=== PATIENT | female | born 1970 | race Caucasian/White ===

== ENCOUNTER → 2016-12-25 | Outpatient (CLI) | payer OTHER ==
[~2016-12-25] MED LIST: BUSPAR15 MG PO; LEXAPRO; LISINOPRIL-HCTZ1 T18 PO; LODINE400 MG PO; LORTAB 7.5-5001 TAB; LORTAB 7.5-5001 TAB PO; PHENERGAN25 MG PO; PRISTIQ50 MG PO
--- NOTE | ~2016-12-25 | MY29 ---
[facility] A Service of [facility] RADIOLOGY TEXT RESULTS PATIENT: KIM NINO LOCATION: [facility] : [birth year] UNIT #: [id number] AGE: [address]: Herson Ledezma MD SEX: F ORDER DR: [id number] [facility] [address] [place], [place] [address] [id number] O MR#: [id number] Acc #: [id number] NAME: KIM NINO : 1970 SEX: F STUDY DATE/TIME: 12/25/2016 11:31 UNIT: [facility] ROOM: STUDY DESCRIPTION: MY [facility] SCREENING W/ CAD BILAT Attending Physician: Herson Ledezma M.D. Ordering Physician: Herson Ledezma M.D. Primary Care Physician: Radha Lemus Aprn MEDICAL IMAGING REPORT This report is preliminary unless electronic signature is present EXAM Bilateral digital screening mammogram with CAD 12/25/2016 INDICATIONS 46-year-old female for routine screening. No reported problems no personal history of breast cancer. Family history positive in the patient's grandmother. Lumpectomy performed on the right in 1999. TECHNIQUE CC and MLO views of the breast were obtained and reviewed with an FDA-approved CAD device COMPARISON 12/05/2015 07/15/2014 05/17/2013 FINDINGS Breast parenchyma is composed of scattered fibroglandular densities. The pattern is unchanged. Scar marker on the right. Mole markers present. There is no new dominant nodule mass or suspicious clustered microcalcifications. Benign calcifications present. IMPRESSION 1. Benign screening mammogram 1 year followup recommended Patients over the age of 40 are entered into a reminder system with target due date for the next mammogram. A result letter will also be sent to the patient. BIRADS: 2, benign findings. Dictated by... Chon Leon M.D. [facility] A Service of [facility] RADIOLOGY TEXT RESULTS PATIENT: KIM NINO LOCATION: [facility] : [birth year] UNIT #: [id number] AGE: [address]: Herson Ledezma MD SEX: F ORDER DR: THIS IS AN ELECTRONICALLY VERIFIED REPORT Chon Leon M.D. at 12/25/2016 2:12 PM ALLA/ponce TD: 12/25/2016 13:50 JOB #: [id number] MEDICAL IMAGING REPORT Page 1 of 1 COPY
== END | disposition home or self-care (01) ==
LOC: CWCC 11:06
DX: Z12.31 Encounter for screening mammogram for malignant neoplasm of breast (principal); Z80.3 Family history of malignant neoplasm of breast; Z98.890 Other specified postprocedural states
CPT/HCPCS: G0202